=== PATIENT | female | born 1985 | race American Indian/Alaskan Native ===

== ENCOUNTER 2017-06-22 11:50 | Emergency (ER) | payer SELFPAY ==
[2017-06-22 12:16] VITALS: BMI 22.6
--- NOTE | 2017-06-22 12:36 | ED PDOC ---
Arrival/HPI - General Chief Complaint: Abdominal Pain Time Seen by Provider: 06/22/17 12:25 Historian: Patient - History of Present Illness Narrative History of Present Illness (Text): 06/22/17 12:33 32 year old female presents to the Emergency department complaining of intermittent generalized abdominal pain for 4 days. Patient also complains of urinary frequency and intermittent morning nose bleeds for approximately 1 week. LNMP was April 01 2017. Patient is P:2 A:3. Patient denies any fever, chills, chest pain, shortness of breath, rhinorrhea, congestion, nausea, vomiting, diarrhea, hematuria, vaginal discharge, vaginal bleeding, back pain, neck pain, headache, dizziness, or any other complaints. Time/Duration: < week (4 days) Symptom Onset: Gradual Symptom Course: Unchanged Context: Home Associated Symptoms (Text): 06/22/17 12:56 Currently no abdominal pain. She has not had any imaging and was not seen by OB/ COMPENSATION SUPERVISOR with this yet. She does not appear ill or uncomfortable. Past Medical History - Provider Review Nursing Documentation Reviewed: Yes - Infectious Disease Hx of Infectious Diseases: None - Reproductive Menopause: No - Psychiatric Hx Substance Use: No - Surgical History Hx Section: Yes (x 2) - Anesthesia Hx Anesthesia: No Hx Anesthesia Reactions: No Hx Malignant Hyperthermia: No Family/Social History - Physician Review Nursing Documentation Reviewed: Yes Family/Social History: Unknown Family HX Smoking Status: Never Smoked Hx Alcohol Use: No Hx Substance Use: No Allergies/Home Meds Allergies/Adverse Reactions: Allergies Sulfa (Sulfonamide Antibiotics) Allergy (Verified 06/22/17 12:16) RASH Swelling Home Medications: Home Meds Medication Instructions Recorded Confirmed No Known Home Med 06/22/17 06/22/17 Review of Systems - Review of Systems Constitutional: absent: Fatigue, Fevers, Night Sweats ENT: Epistaxis (intermittent, in the mornings). absent: Sinus Congestion Respiratory: absent: SOB, Cough Cardiovascular: absent: Chest Pain, Palpitations, Syncope Gastrointestinal: Abdominal Pain. absent: Diarrhea, Nausea, Vomiting Genitourinary Female: Frequency. absent: Dysuria, Hematuria, Vaginal Bleeding, Vaginal Discharge Musculoskeletal: absent: Back Pain, Neck Pain Neurological: absent: Headache, Dizziness, Focal Weakness Physical Exam Vital Signs Reviewed: Yes Vital Signs Temp Pulse Resp BP Pulse Ox 06/22/17 12:17 98.0 F 82 20 128/84 98 Temperature: Afebrile Blood Pressure: Normal Pulse: Regular Respiratory Rate: Normal Appearance: Positive for: Well-Appearing, Non-Toxic, Comfortable Pain Distress: None Mental Status: Positive for: Alert and Oriented X 3 - Systems Exam Head: Present: Atraumatic, Normocephalic Pupils: Present: PERRL Extroacular Muscles: Present: EOMI Conjunctiva: Present: Normal Mouth: Present: Moist Mucous Membranes Pharnyx: No: ERYTHEMA, EXUDATE, TONSILS ENLARGED Neck: Present: Normal Range of Motion Respiratory/Chest: Present: Clear to Auscultation, Good Air Exchange. No: Respiratory Distress, Accessory Muscle Use Cardiovascular: Present: Regular Rate and Rhythm, Normal S1, S2. No: Murmurs Abdomen: Present: Normal Bowel Sounds. No: Tenderness, Distention, Peritoneal Signs, Rebound, Guarding Back: Present: Normal Inspection Upper Extremity: Present: Normal Inspection. No: Cyanosis, Edema Lower Extremity: Present: Normal Inspection. No: Edema Neurological: Present: GCS=15, CN II-XII Intact, Speech Normal, Motor Func Grossly Intact Skin: Present: Warm, Dry, Normal Color. No: Rashes Psychiatric: Present: Alert, Oriented x 3, Normal Insight, Normal Concentration Medical Decision Making ED Course and Treatment: 06/22/17 12:40 Impression: 32 year old female presents to the Emergency department complaining of intermittent diffuse abdominal pain. Plan: -- Tranvaginal US -- Urinalysis, HCG Qualitative urine -- Type and Screen, Labs -- Reassess and disposition Progress Notes: 06/22/17 14:29 Patient is requesting a note for work. - Lab Interpretations Lab Results: 06/22/17 12:40 06/22/17 12:40 Lab Results 06/22/17 13:00: Blood Type Confirm A POSITIVE 06/22/17 12:55: Urine Color Yellow, Urine Appearance Clear, Urine pH 8.0, Ur Specific [place] 1.015, Urine Protein Negative, Urine Glucose (UA) Negative, Urine Ketones Negative, Urine Blood Negative, Urine Nitrate Negative, Urine Bilirubin Negative, Urine Urobilinogen 0.2, Ur Leukocyte Esterase Negative, Urine HCG, Qual Positive 06/22/17 12:40: Blood Type A POSITIVE, Antibody Screen Negative, BBK History Checked No verified bt 06/22/17 12:40: Beta HCG, Quant [id number] H 06/22/17 12:40: Sodium 138, Potassium 4.3, Chloride 104, Carbon Dioxide 24, Anion Gap 15, BUN 6 L, Creatinine 0.6 L, Est GFR ( Amer) > 60, Est GFR ( Non-Af Amer) > 60, Random Glucose 78, Calcium 9.7, Total Bilirubin 0.3, AST 20, ALT 24, Alkaline Phosphatase 41, Total Protein 7.5, Albumin 4.1, Globulin 3.4, Albumin/Globulin Ratio 1.2, Lipase 115 06/22/17 12:40: PT 12.1, INR 1.05, APTT 28.0 06/22/17 12:40: WBC 9.0, RBC 4.60, Hgb 11.6 L, Hct 34.4 L, MCV 74.8 L, MCH 25.2 , MCHC 33.7, RDW 15.0 H, Plt Count 214, MPV 9.9, Gran % 71.1 H, Lymph % (Auto) 23.1, [place] % (Auto) 4.9, Eos % (Auto) 0.7 L, Baso % (Auto) 0.2, Gran # 6.38, Lymph # (Auto) 2.1, [place] # (Auto) 0.4, Eos # (Auto) 0.1, Baso # (Auto) 0.02 - RAD Interpretation Radiology Orders: 06/22/17 12:32 AGE [US] Stat Ultrasound shows a 12 week 4 day IUP with good heartbeat. Senior Test Engineer: Radiologist - Scribe Statement The provider has reviewed the documentation as recorded by the Lizzy Cardona Provider Scribe Attestation: All medical record entries made by the Scribe were at my direction and personally dictated by me. I have reviewed the chart and agree that the record accurately reflects my personal performance of the history, physical exam, medical decision making, and the department course for this patient. I have also personally directed, reviewed, and agree with the discharge instructions and disposition. Disposition/Present on Arrival - Present on Arrival Any Indicators Present on Arrival: No History of DVT/PE: No History of Uncontrolled Diabetes: No Urinary Catheter: No History of Decub. Ulcer: No History Surgical Site Infection Following: None - Disposition Have Diagnosis and Disposition been Completed?: Yes Diagnosis: Epistaxis, Intrauterine , Abdominal pain Disposition: HOME/ ROUTINE Disposition Time: 14:30 Patient Plan: Discharge Condition: GOOD Discharge Instructions (ExitCare): Nosebleeds, Acute Abdomen (Belly Pain), - The Fourth Month, Activity During Additional Instructions: Follow-up with SKILLED LABORER. Follow-up in the ER as needed. Forms: [facility] ([place]), WORK NOTE
[2017-06-22 12:55] LABS: BASO # 0.02 K/mm3 (0.0-2.0); BASO % 0.2 % (0.0-3.0); EOS # 0.1 (0.0-0.7); EOS % 0.7 % (1.5-5.0); GRAN # 6.38 (1.4-6.5); GRAN % 71.1 % (50.0-68.0); HEMOGLOBIN 11.6 g/dL (12.0-16.0); LYMPH # 2.1 (1.2-3.4); LYMPH % 23.1 % (22.0-35.0); MEAN CELL VOLUME 74.8 fl (80.0-105.0); MEAN CORPUSCULAR HEMOGLOBIN 25.2 pg (25.0-35.0); MEAN CORPUSCULAR HGB CONC 33.7 g/dl (31.0-37.0); MEAN PLATELET VOLUME 9.9 fl (7.0-11.0); MONO # 0.4 (0.1-0.6); MONO % 4.9 % (1.0-6.0); RBC 4.6 10^6/uL (3.5-6.1)
[2017-06-22 13:05] LABS: ALB/GLOB RATIO 1.2 (1.1-1.8); ALBUMIN 4.1 g/dL (3.0-4.8); ALT/SGPT 24 U/L (7-56); AST/SGOT 20 U/L (14-36); BLOOD UREA NITROGEN 6 mg/dL (7-21); CALCIUM 9.7 mg/dL (8.4-10.5); GFR AFRICAN-AMERICAN > 60; GFR NON-AFRICAN AMERICAN > 60; INR 1.05 (0.93-1.08); LIPASE 115 U/L (23-300); PROTHROMBIN TIME 12.1 SECONDS (9.4-12.5)
[2017-06-22 13:08] LABS: URINE BILIRUBIN NEGATIVE (NEGATIVE); URINE BLOOD NEGATIVE (NEGATIVE); URINE GLUCOSE (UA) NEGATIVE (NEGATIVE); URINE LEUKOCYTE ESTERASE NEGATIVE Leu/uL (NEGATIVE); URINE PROTEIN NEGATIVE mg/dL (<30 mg/dL); URINE UROBILINOGEN 0.2 E.U./dL (<1 E.U./dL)
[2017-06-22 13:10] LABS: HCG,QUALITATIVE URINE POSITIVE (NEGATIVE); URINE APPEARANCE CLEAR (CLEAR); URINE COLOR YELLOW (YELLOW)
[2017-06-22 14:48] VITALS: TEMP 98
[2017-06-22 14:52] VITALS: BP 128/76; PULSE 80; RESP 16; O2SAT 97
--- NOTE | 2017-06-22 14:58 | US ---
PROCEDURE: OB Pelvic Ultrasound HISTORY: pain. Evaluate age. LMP: 03/29/2017 COMPARISON: No prior similar or related study available for comparison. Technique: Transabdominal ultrasound examination of the pelvis was performed. FINDINGS: UTERUS: Gestational sac: Single intrauterine gestation. Heart rate: 160 bpm. age (Ultrasound estimated): 12 weeks 4 days 0 weeks 6 days Lulú-gestational hemorrhage: None. Date of delivery (Ultrasound estimated) : 12/31/2017 Uterus measures 12.2 x 7.6 x 7.5 cm. Normal in size and appearance. CERVIX: Measures 3.2 cm. Long and closed. No cervical abnormality seen. RIGHT OVARY: Measures 3.2 x 1.8 x 2.3 cm. No mass lesion. Normal flow. There is a cystic lesions seen at the right ovary measures 1.9 x 1.5 x 1.8 centimeter. LEFT OVARY: Measures 2.3 x 1.1 x 1.8 cm. No solid mass. Normal flow. FREE FLUID: None. OTHER FINDINGS: None. IMPRESSION: Single intrauterine live with ultrasound estimated gestational age of 12 weeks 4 days 0 weeks 6 days. Estimated date of delivery by ultrasound is 12/31/2017. Placenta seen at the posterior wall. Low lying placenta is noted. Follow-up is suggested. Small cyst at the right ovary likely corpus luteum cyst.
== END 2017-06-22 14:45 | disposition home or self-care (01) ==
LOC: MERGE 11:50 → ED 11:50
DX: O26.891 Other specified pregnancy related conditions, first trimester (principal); R04.0 Epistaxis; R10.84 Generalized abdominal pain; Z3A.12 12 weeks gestation of pregnancy